=== PATIENT | female | born 1980 | race Caucasian/White ===

== ENCOUNTER 2018-12-14 10:02 | Day surgery (SDC) | payer OTHER ==
[~2018-12-14 10:02] MED LIST: CEFAZOLIN 2 GM/50 ML (PMX) 50 ML IVPB; SOD CHLORIDE 0.9% 1,000 ML IV
[2018-12-14] MEDS ORDERED: PROPOFOL 20 ML (12:55)
[2018-12-14] MEDS ORDERED: NEOSTIGMINE 3 MG/3 ML SYRINGE (12:55)
[2018-12-14] MEDS ORDERED: ROCURONIUM 50 MG INJ (12:55)
[2018-12-14] MEDS ORDERED: CEFAZOLIN 1 GM INJ (12:55)
[2018-12-14] MEDS ORDERED: GLYCOPYRROLATE 0.4 MG INJ (12:55)
[2018-12-14] MEDS ORDERED: MIDAZOLAM 1 MG/ML 2 ML INJ (12:57)
[2018-12-14] MEDS ORDERED: ONDANSETRON 4 MG INJ (12:57)
[2018-12-14] MEDS ORDERED: FENTAnyl 50 MCG/ML VIAL (12:57)
[2018-12-14] MEDS ORDERED: ROPIVACAINE 0.5 % 30 ML VIAL (12:57)
[2018-12-14] MEDS ORDERED: DEXAMETHASONE 4 MG/ML 5 ML INJ (12:57)
[2018-12-14] MEDS ORDERED: TRIMETHOBENZAMIDE 100 MG/ML VIAL IM (13:00)
[2018-12-14] MEDS ORDERED: OXYCODONE/ACETAMINOPHEN (5/325) TAB PO ×2 (13:00)
[2018-12-14] MEDS ORDERED: LABETALOL HCL 20MG INJ IV (13:00)
[2018-12-14] MEDS ORDERED: ONDANSETRON 4 MG INJ IV ×2 (13:00→15:00)
[2018-12-14] MEDS ORDERED: EPHEDrine SULFATE 50 MG/5 ML SYG IV (13:00)
[2018-12-14] MEDS ORDERED: IPRATROPIUM (NEB) 0.5 MG/2.5 ML AMP HHN (13:00)
[2018-12-14] MEDS ORDERED: MEPERIDINE 25 MG INJ IV (13:00)
[2018-12-14] MEDS ORDERED: DIPHENHYDRAMINE 50 MG INJ IV (13:00)
[2018-12-14] MEDS ORDERED: HYDROmorphONE 1 MG/5 ML IV SYRINGE IV ×3 (13:00)
[2018-12-14] MEDS ORDERED: FENTAnyl 50 MCG/ML VIAL IV ×2 (13:00)
[2018-12-14] MEDS ORDERED: ALBUTEROL 0.083% (NEB) 2.5 MG/3 ML AMP HHN (13:00)
[2018-12-14] MEDS ORDERED: MIDAZOLAM 1 MG/ML 2 ML INJ IV (13:00)
[2018-12-14] MEDS ORDERED: hydrALAzine 20 MG INJ IV (13:00)
[2018-12-14] MEDS: BUPIVACAINE 0.5%/EPI (SDV) 30 ML INJ (14:11)
[2018-12-14] MEDS: POLYMYXIN/BACITRACIN 1L IRRIG IRR (14:11)
[2018-12-14] MEDS ORDERED: SUGAMMADEX SODIUM 200 MG/2 ML VIAL IV (14:30)
[2018-12-14] MEDS: FENTAnyl 50 MCG/ML VIAL IV (14:52)
[2018-12-14] MEDS ORDERED: IBUPROFEN 600 MG TAB PO (15:00)
[2018-12-14] MEDS ORDERED: KETOROLAC 30 MG INJ IV (15:00)
== END 2018-12-14 16:25 | disposition home or self-care (01) ==
LOC: SDS 10:02
DX: K43.9 Ventral hernia without obstruction or gangrene (principal)
CPT/HCPCS: 49560; 84703; 88302